=== PATIENT | female | born 1950 | race African-American/Black ===

== ENCOUNTER 2020-06-13 19:56 | Inpatient (IN) | payer OTHER, MEDICAID ==
[~2020-06-13] VITALS: Ht 170.2 cm; Wt 74.4 kg
[2020-06-13] MEDS ORDERED: CEFTRIAXONE 1 G PREMIX 50 ML IV ONE (20:15)
[2020-06-13] MEDS ORDERED: DEXAMETHASONE 10 MG/ML VIAL IV ONE (20:15)
[2020-06-13] MEDS ORDERED: AZITHROMYCIN 500 MG in DEXT 5% WATER 250 ML IV ONE (20:15)
[2020-06-13] MEDS ORDERED: ACETAMINOPHEN 325MG TABLET PO ONE (21:00)
[2020-06-13] MEDS ORDERED: SODIUM CHLORIDE 0.9% 500 ML IV ONE (21:00)
[2020-06-13 21:18] LABS: BASOPHILS % 0.7 % (0.0-2.0); EOSINOPHILS % 0.7 % (0.0-5.0); HEMATOCRIT. 46.3 % (36.0-48.0); HEMOGLOBIN. 15.2 g/dL (12.0-16.0); LYMPHOCYTES % 18.8 % (20.0-50.0); MEAN CORPUSCULAR VOLUME 91.5 fL (81.0-99.0); MEAN PLATELET VOLUME 9.2 fl (7.4-10.4); MONOCYTES % 7.6 % (2.0-8.0); NEUTROPHILS % 72.2 % (40.0-76.0); PLATELET 241 x1000/uL (130-400); RED BLOOD CELL COUNT 5.06 mill/uL (4.2-5.4); RED CELL DISTRIBUTION WIDTH 13.6 % (11.6-14.6)
[2020-06-13 21:25] LABS: CHLORIDE 103 mEq/L (98-107)
[2020-06-13 21:31] LABS: D-DIMER 1.34 mg/L FEU (<0.50); PROTHROMBIN TIME 10.8 sec (9.6-11.0)
[2020-06-13 21:34] LABS: CREATINE KINASE 145 IU/L (26-192)
[2020-06-13 21:52] LABS: BG BASE EXCESS -2.3 mmol/L (-2.0-2.0); BG CARBOXYHEMOGLOBIN 0.5 % (0.5-1.5); BG DEOXYHEMOGLOBIN 3.5 % (0.0-5.0); BG FRACTION INSPIRED OXYGEN 50; BG HCO3 ACT 22.6 mmol/L (22.0-26.0); BG METHEMOGLOBIN 0.3 % (0.0-1.5); BG OXYGEN SATURATION 96.5 % (92.0-98.5); BG OXYHEMOGLOBIN 95.7 % (94.0-97.0); BG PCO2 39.1 mmHg (35.0-45.0); BG PH 7.379 (7.350-7.450); BG SAMPLE SITE RIGHT RADIAL; BG TOTAL HEMOGLOBIN 14.6 g/dL (12.0-18.0); BG VENT MODE NASAL CANNULA
[2020-06-14 00:43] LABS: CLARITY URINE CLEAR (CLEAR); COLOR URINE YELLOW (YELLOW); KETONES URINE TRACE (NEGATIVE); LEUKOCYTE ESTERASE URINE NEGATIVE (NEGATIVE); NITRITE URINE NEGATIVE (NEGATIVE); OCCULT BLOOD URINE NEGATIVE (NEGATIVE); PH URINE 5.5 (4.5-8.0); PROTEIN URINE 1+ (NEGATIVE); SPECIFIC GRAVITY URINE 1.033 (1.005-1.030)
[2020-06-14] MEDS ORDERED: ONDANSETRON HCL 4MG/2ML INJ IV PRN (08:00)
[2020-06-14] MEDS ORDERED: BENZONATATE 100MG CAPSULE PO PRN (08:00)
[2020-06-14] MEDS ORDERED: CEFTRIAXONE 1 G PREMIX 50 ML IV SCH (08:00)
[2020-06-14] MEDS: AZITHROMYCIN 250 MG TABLET PO SCH (12:58)
[2020-06-14] MEDS: DEXAMETHASONE 4MG TABLET PO SCH (12:58)
[2020-06-14] MEDS: ENOXAPARIN 40MG/0.4ML SYR SUBCUT SCH (12:59)
[2020-06-14] MEDS ORDERED: GUAIFENESIN-DM 200MG-20MG/10ML UDC PO PRN (20:45)
[2020-06-14] MEDS ORDERED: ALBUTEROL 6.7GM HFA INHALER ORI PRN (20:45)
[2020-06-15] MEDS: CEFTRIAXONE 1,000 MG in DEXTROSE 5% WATER 50 ML IV SCH (00:30)
[2020-06-15] MEDS ORDERED: CEFTRIAXONE SODIUM 1 G/VIAL ONE (00:34)
[2020-06-15] MEDS: DEXAMETHASONE 4MG TABLET PO SCH (09:00)
[2020-06-15] MEDS: AZITHROMYCIN 250 MG TABLET PO SCH (09:00)
[2020-06-15] MEDS: ENOXAPARIN 40MG/0.4ML SYR SUBCUT SCH (09:00)
[2020-06-15 09:58] LABS: *AMPHETAMINES SCREEN URINE NEGATIVE (NEGATIVE)
[2020-06-15 09:59] LABS: *BARBITURATES SCREEN URINE NEGATIVE (NEGATIVE); *BENZODIAZEPINES SCREEN URINE NEGATIVE (NEGATIVE); *COCAINE SCREEN URINE NEGATIVE (NEGATIVE); CANNABINOID URINE SCREEN NEGATIVE (NEGATIVE); METHADONE URINE SCREEN NEGATIVE (NEGATIVE); OPIATES URINE SCREEN NEGATIVE (NEGATIVE); PHENCYCLIDINE URINE SCREEN NEGATIVE (NEGATIVE)
[2020-06-15] MEDS ORDERED: DEXTROSE 50% WATER 50ML SYRINGE IV PRN (11:15)
[2020-06-15] MEDS: BLOOD SUGAR DIAGNOSTIC STRIP TEST SCH ×3 (11:54→21:00)
[2020-06-15] MEDS: INSULIN LISPRO 100 UNITS/ML SUBCUT SCH ×3 (12:00→23:38)
[2020-06-15 14:00] VITALS: BP 158/66
[2020-06-15] MEDS ORDERED: INSULIN GLARGINE UD 100 UNITS/ML SYR SUBCUT NR (16:00)
[2020-06-15 20:00] VITALS: BP 160/76
[2020-06-15] MEDS: INSULIN GLARGINE UD 100 UNITS/ML SYR SUBCUT SCH (23:38)
[2020-06-16] VITALS: BP 145/55
[2020-06-16] MEDS: CEFTRIAXONE 1,000 MG in DEXTROSE 5% WATER 50 ML IV SCH (03:04)
[2020-06-16 04:00] VITALS: BP 143/61
[2020-06-16 08:00] VITALS: BP 137/63
[2020-06-16] MEDS: BLOOD SUGAR DIAGNOSTIC STRIP TEST SCH ×4 (08:20→21:00)
[2020-06-16] MEDS: ASPIRIN 81MG TABLET PO SCH (09:23)
[2020-06-16] MEDS: AZITHROMYCIN 250 MG TABLET PO SCH (09:23)
[2020-06-16] MEDS: DEXAMETHASONE 4MG TABLET PO SCH (09:23)
[2020-06-16] MEDS: ENOXAPARIN 40MG/0.4ML SYR SUBCUT SCH (09:23)
[2020-06-16] MEDS: INSULIN LISPRO 100 UNITS/ML SUBCUT SCH ×3 (09:25→17:43)
[2020-06-16] MEDS: INSULIN GLARGINE UD 100 UNITS/ML SYR SUBCUT SCH (09:26)
[2020-06-16 12:00] VITALS: BP 148/55
[2020-06-16 16:00] VITALS: BP 150/65
[2020-06-16 18:17] LABS: BG BASE EXCESS 2.8 mmol/L (-2.0-2.0); BG CARBOXYHEMOGLOBIN 0.4 % (0.5-1.5); BG DEOXYHEMOGLOBIN 12.9 % (0.0-5.0); BG FRACTION INSPIRED OXYGEN 21; BG HCO3 ACT 26.9 mmol/L (22.0-26.0); BG METHEMOGLOBIN 0.1 % (0.0-1.5); BG OXYHEMOGLOBIN 86.6 % (94.0-97.0); BG PCO2 39.5 mmHg (35.0-45.0); BG PH 7.451 (7.350-7.450); BG PO2 47.8 mmHg (75.0-100.0); BG SAMPLE SITE LEFT RADIAL; BG TOTAL HEMOGLOBIN 15.2 g/dL (12.0-18.0); BG VENT MODE ROOM AIR
[2020-06-16] MEDS: ACETAMINOPHEN 325MG TABLET PO PRN (21:12)
[2020-06-17] MEDS: CEFTRIAXONE 1,000 MG in DEXTROSE 5% WATER 50 ML IV SCH (00:19)
[2020-06-17] MEDS: INSULIN GLARGINE UD 100 UNITS/ML SYR SUBCUT SCH ×2 (00:19→09:13)
[2020-06-17] MEDS: INSULIN LISPRO 100 UNITS/ML SUBCUT SCH ×5 (00:20→22:11)
[2020-06-17 00:24] VITALS: BP 168/72
[2020-06-17 04:29] VITALS: BP 153/78
[2020-06-17] MEDS: BLOOD SUGAR DIAGNOSTIC STRIP TEST SCH ×4 (06:41→21:27)
[2020-06-17 08:00] VITALS: BP 164/63
[2020-06-17] MEDS: DEXAMETHASONE 4MG TABLET PO SCH (09:12)
[2020-06-17] MEDS: ENOXAPARIN 40MG/0.4ML SYR SUBCUT SCH (09:12)
[2020-06-17] MEDS: ASPIRIN 81MG TABLET PO SCH (09:12)
[2020-06-17] MEDS: AZITHROMYCIN 250 MG TABLET PO SCH (09:12)
[2020-06-17 12:00] VITALS: BP 153/70
[2020-06-17] MEDS: ACETAMINOPHEN 325MG TABLET PO PRN (13:11)
[2020-06-17] MEDS: BENZONATATE 100MG CAPSULE PO SCH ×2 (13:24→21:26)
[2020-06-17 16:00] VITALS: BP 147/64
[2020-06-17 20:00] VITALS: BP 169/94
[2020-06-17] MEDS: CLONIDINE 0.1MG TABLET PO PRN (21:27)
[2020-06-18] VITALS: BP 163/70
[2020-06-18] MEDS: INSULIN GLARGINE UD 100 UNITS/ML SYR SUBCUT SCH ×3 (00:30→22:32)
[2020-06-18] MEDS: CEFTRIAXONE 1,000 MG in DEXTROSE 5% WATER 50 ML IV SCH (00:31)
[2020-06-18 04:00] VITALS: BP 155/64
[2020-06-18] MEDS: BENZONATATE 100MG CAPSULE PO SCH ×3 (05:17→22:32)
[2020-06-18] MEDS: ACETAMINOPHEN 325MG TABLET PO PRN (06:55)
[2020-06-18 08:00] VITALS: BP 154/69
[2020-06-18] MEDS: BLOOD SUGAR DIAGNOSTIC STRIP TEST SCH ×4 (08:00→21:00)
[2020-06-18] MEDS: ASPIRIN 81MG TABLET PO SCH (10:03)
[2020-06-18] MEDS: DEXAMETHASONE 4MG TABLET PO SCH (10:03)
[2020-06-18] MEDS: ENOXAPARIN 40MG/0.4ML SYR SUBCUT SCH (10:04)
[2020-06-18] MEDS: INSULIN LISPRO 100 UNITS/ML SUBCUT SCH ×4 (10:05→22:32)
[2020-06-18 12:00] VITALS: BP 166/73
[2020-06-18] MEDS: CLONIDINE 0.1MG TABLET PO PRN (12:37)
[2020-06-18] MEDS: AMLODIPINE 10MG TABLET PO SCH (14:02)
[2020-06-18 16:00] VITALS: BP 158/65
[2020-06-18] MEDS ORDERED: THROAT LOZENGES-BENZOCAINE/MENTH/CETYLPYRD CL LOZENGES MM PRN (16:45)
[2020-06-18 17:10] LABS: HEMATOCRIT. 47.8 % (36.0-48.0); HEMOGLOBIN. 15.7 g/dL (12.0-16.0); MEAN CORPUSCULAR HEMOGLOBIN 30.2 pg (28.0-32.0); MEAN CORPUSCULAR VOLUME 91.9 fL (81.0-99.0); MEAN PLATELET VOLUME 9.5 fl (7.4-10.4); PLATELET 307 x1000/uL (130-400); RED BLOOD CELL COUNT 5.19 mill/uL (4.2-5.4); RED CELL DISTRIBUTION WIDTH 13.7 % (11.6-14.6)
[2020-06-18 17:21] LABS: CHLORIDE 105 mEq/L (98-107)
[2020-06-18 17:42] LABS: PLATELET ESTIMATE NORMAL
[2020-06-18 20:00] VITALS: BP 144/67
[2020-06-19] VITALS: BP 155/64
[2020-06-19 04:00] VITALS: BP 140/72
[2020-06-19] MEDS: BENZONATATE 100MG CAPSULE PO SCH ×3 (05:39→21:45)
[2020-06-19] MEDS: BLOOD SUGAR DIAGNOSTIC STRIP TEST SCH ×4 (06:33→21:44)
[2020-06-19 08:00] VITALS: BP 139/60
[2020-06-19] MEDS: AMLODIPINE 10MG TABLET PO SCH (09:57)
[2020-06-19] MEDS: ENOXAPARIN 40MG/0.4ML SYR SUBCUT SCH (09:58)
[2020-06-19] MEDS: DEXAMETHASONE 4MG TABLET PO SCH (09:58)
[2020-06-19] MEDS: INSULIN GLARGINE UD 100 UNITS/ML SYR SUBCUT SCH ×2 (09:59→23:29)
[2020-06-19] MEDS: INSULIN LISPRO 100 UNITS/ML SUBCUT SCH ×4 (09:59→21:45)
[2020-06-19] MEDS: ASPIRIN 81MG TABLET PO SCH (10:04)
[2020-06-19 12:00] VITALS: BP 159/61
[2020-06-19 16:00] VITALS: BP 135/68
[2020-06-19 20:00] VITALS: BP 151/66
[2020-06-20] VITALS: BP 152/68
[2020-06-20 04:00] VITALS: BP 149/67
[2020-06-20] MEDS: BLOOD SUGAR DIAGNOSTIC STRIP TEST SCH ×4 (06:04→21:56)
[2020-06-20] MEDS: BENZONATATE 100MG CAPSULE PO SCH ×3 (06:04→22:06)
[2020-06-20] MEDS: INSULIN LISPRO 100 UNITS/ML SUBCUT SCH ×4 (07:29→22:07)
[2020-06-20 08:00] VITALS: BP 157/66
[2020-06-20] MEDS: ASPIRIN 81MG TABLET PO SCH (09:27)
[2020-06-20] MEDS: DEXAMETHASONE 4MG TABLET PO SCH (09:27)
[2020-06-20] MEDS: AMLODIPINE 10MG TABLET PO SCH (09:27)
[2020-06-20] MEDS: ENOXAPARIN 40MG/0.4ML SYR SUBCUT SCH (09:27)
[2020-06-20] MEDS: INSULIN GLARGINE UD 100 UNITS/ML SYR SUBCUT SCH ×2 (09:29→22:08)
[2020-06-20 11:26] LABS: BG BASE EXCESS 8.1 mmol/L (-2.0-2.0); BG CARBOXYHEMOGLOBIN 0.5 % (0.5-1.5); BG DEOXYHEMOGLOBIN 17.1 % (0.0-5.0); BG HCO3 ACT 32.1 mmol/L (22.0-26.0); BG METHEMOGLOBIN 0.2 % (0.0-1.5); BG OXYGEN SATURATION 82.8 % (92.0-98.5); BG OXYHEMOGLOBIN 82.2 % (94.0-97.0); BG PCO2 41.7 mmHg (35.0-45.0); BG PH 7.504 (7.350-7.450); BG PO2 43.2 mmHg (75.0-100.0); BG TOTAL HEMOGLOBIN 15.6 g/dL (12.0-18.0); BG VENT MODE ROOM AIR
[2020-06-20 12:00] VITALS: BP 105/63
[2020-06-20 12:06] LABS: BASOPHILS % 0.6 % (0.0-2.0); EOSINOPHILS % 0.1 % (0.0-5.0); HEMATOCRIT. 48.1 % (36.0-48.0); HEMOGLOBIN. 15.7 g/dL (12.0-16.0); LYMPHOCYTES % 7.8 % (20.0-50.0); MEAN CORPUSCULAR HEMOGLOBIN 30.2 pg (28.0-32.0); MEAN CORPUSCULAR VOLUME 92.6 fL (81.0-99.0); MEAN PLATELET VOLUME 9.6 fl (7.4-10.4); NEUTROPHILS % 87.5 % (40.0-76.0); PLATELET 316 x1000/uL (130-400); RED BLOOD CELL COUNT 5.19 mill/uL (4.2-5.4); RED CELL DISTRIBUTION WIDTH 13.5 % (11.6-14.6)
[2020-06-20 12:23] LABS: CHLORIDE 104 mEq/L (98-107)
[2020-06-20 16:00] VITALS: BP 139/58
[2020-06-20] MEDS ORDERED: HYDROCODONE/ACETAMINOPHEN 5/325MG TABLET PO PRN (16:15)
[2020-06-20] MEDS: ALBUTEROL 6.7GM HFA INHALER ORI SCH (19:03)
[2020-06-20 20:00] VITALS: BP 140/65
[2020-06-20] MEDS: FAMOTIDINE 20MG TABLET PO SCH (22:06)
[2020-06-21] VITALS: BP 152/70
[2020-06-21 04:00] VITALS: BP 152/69
[2020-06-21] MEDS: BENZONATATE 100MG CAPSULE PO SCH ×3 (06:32→22:31)
[2020-06-21] MEDS: INSULIN LISPRO 100 UNITS/ML SUBCUT SCH ×4 (07:58→22:32)
[2020-06-21] MEDS: BLOOD SUGAR DIAGNOSTIC STRIP TEST SCH ×4 (07:58→21:00)
[2020-06-21 08:00] VITALS: BP 137/58
[2020-06-21] MEDS: ASPIRIN 81MG TABLET PO SCH (09:30)
[2020-06-21] MEDS: DEXAMETHASONE 4MG TABLET PO SCH (09:31)
[2020-06-21] MEDS: AMLODIPINE 10MG TABLET PO SCH (09:31)
[2020-06-21] MEDS: ENOXAPARIN 40MG/0.4ML SYR SUBCUT SCH (09:32)
[2020-06-21 12:00] VITALS: BP 121/62
[2020-06-21 12:28] LABS: BG BASE EXCESS 6.4 mmol/L (-2.0-2.0); BG CARBOXYHEMOGLOBIN 0.8 % (0.5-1.5); BG DEOXYHEMOGLOBIN 6.2 % (0.0-5.0); BG FRACTION INSPIRED OXYGEN 100; BG HCO3 ACT 30.9 mmol/L (22.0-26.0); BG METHEMOGLOBIN 0.1 % (0.0-1.5); BG OXYGEN SATURATION 93.7 % (92.0-98.5); BG OXYHEMOGLOBIN 92.9 % (94.0-97.0); BG PCO2 43.8 mmHg (35.0-45.0); BG PH 7.467 (7.350-7.450); BG PO2 65.8 mmHg (75.0-100.0); BG SAMPLE SITE RIGHT RADIAL; BG TOTAL HEMOGLOBIN 15.2 g/dL (12.0-18.0); BG TOTAL RESPIRATORY RATE 34 b/min; BG VENT MODE MASK - BIPAP
[2020-06-21] MEDS: ALBUTEROL 6.7GM HFA INHALER ORI SCH ×2 (12:59→18:18)
[2020-06-21 16:00] VITALS: BP 124/62
[2020-06-21 20:00] VITALS: BP 133/61
[2020-06-21] MEDS: FAMOTIDINE 20MG TABLET PO SCH (22:31)
[2020-06-21] MEDS: INSULIN GLARGINE UD 100 UNITS/ML SYR SUBCUT SCH (22:33)
[2020-06-22] VITALS: BP 135/64
[2020-06-22 04:00] VITALS: BP 144/63
[2020-06-22] MEDS: ALBUTEROL 6.7GM HFA INHALER ORI SCH ×4 (06:11→18:20)
[2020-06-22] MEDS: BENZONATATE 100MG CAPSULE PO SCH ×3 (06:11→22:14)
[2020-06-22 06:49] LABS: BASOPHILS % 0.3 % (0.0-2.0); CHLORIDE 105 mEq/L (98-107); EOSINOPHILS % 0.5 % (0.0-5.0); HEMATOCRIT. 41.9 % (36.0-48.0); MEAN CORPUSCULAR HEMOGLOBIN 30.6 pg (28.0-32.0); MEAN CORPUSCULAR VOLUME 91.7 fL (81.0-99.0); MEAN PLATELET VOLUME 10.2 fl (7.4-10.4); MONOCYTES % 5.2 % (2.0-8.0); PLATELET 274 x1000/uL (130-400); RED BLOOD CELL COUNT 4.57 mill/uL (4.2-5.4); RED CELL DISTRIBUTION WIDTH 13.1 % (11.6-14.6)
[2020-06-22] MEDS: BLOOD SUGAR DIAGNOSTIC STRIP TEST SCH ×4 (06:55→21:16)
[2020-06-22] MEDS: INSULIN LISPRO 100 UNITS/ML SUBCUT SCH ×4 (07:56→22:13)
[2020-06-22 08:00] VITALS: BP 133/71
[2020-06-22] MEDS: DEXAMETHASONE 4MG TABLET PO SCH (08:40)
[2020-06-22] MEDS: ASPIRIN 81MG TABLET PO SCH (08:40)
[2020-06-22] MEDS: ENOXAPARIN 40MG/0.4ML SYR SUBCUT SCH (08:40)
[2020-06-22] MEDS: AMLODIPINE 10MG TABLET PO SCH (08:40)
[2020-06-22] MEDS: INSULIN GLARGINE UD 100 UNITS/ML SYR SUBCUT SCH ×2 (11:03→22:14)
[2020-06-22 12:00] VITALS: BP 125/70
[2020-06-22 13:46] LABS: BG BASE EXCESS 4.7 mmol/L (-2.0-2.0); BG CARBOXYHEMOGLOBIN 1.4 % (0.5-1.5); BG DEOXYHEMOGLOBIN 6.8 % (0.0-5.0); BG FRACTION INSPIRED OXYGEN 36; BG HCO3 ACT 29.1 mmol/L (22.0-26.0); BG METHEMOGLOBIN 0.1 % (0.0-1.5); BG OXYGEN SATURATION 93.1 % (92.0-98.5); BG OXYHEMOGLOBIN 91.7 % (94.0-97.0); BG PCO2 41.8 mmHg (35.0-45.0); BG PO2 62.2 mmHg (75.0-100.0); BG SAMPLE SITE RIGHT RADIAL; BG TOTAL HEMOGLOBIN 15.3 g/dL (12.0-18.0); BG VENT MODE NASAL CANNULA
[2020-06-22 16:00] VITALS: BP 127/68
[2020-06-22 20:00] VITALS: BP 117/52
[2020-06-22] MEDS: FAMOTIDINE 20MG TABLET PO SCH (22:14)
[2020-06-23 04:00] VITALS: BP_SYST 128; BP_SYST 97; BP_DIAS 48; BP_DIAS 62
[2020-06-23] MEDS: BENZONATATE 100MG CAPSULE PO SCH ×3 (06:10→21:31)
[2020-06-23] MEDS: ALBUTEROL 6.7GM HFA INHALER ORI SCH ×3 (06:10→18:04)
[2020-06-23] MEDS: BLOOD SUGAR DIAGNOSTIC STRIP TEST SCH ×4 (07:28→21:33)
[2020-06-23] MEDS: INSULIN LISPRO 100 UNITS/ML SUBCUT SCH ×4 (07:47→21:33)
[2020-06-23 08:00] VITALS: BP 132/54
[2020-06-23] MEDS: INSULIN GLARGINE UD 100 UNITS/ML SYR SUBCUT SCH ×2 (10:00→21:32)
[2020-06-23] MEDS: DEXAMETHASONE 4MG TABLET PO SCH (10:57)
[2020-06-23] MEDS: ASPIRIN 81MG TABLET PO SCH (10:57)
[2020-06-23] MEDS: AMLODIPINE 10MG TABLET PO SCH (10:57)
[2020-06-23] MEDS: ENOXAPARIN 40MG/0.4ML SYR SUBCUT SCH (10:58)
[2020-06-23 12:00] VITALS: BP 124/58
[2020-06-23 16:00] VITALS: BP 117/78
[2020-06-23 20:00] VITALS: BP 120/50
[2020-06-23] MEDS: FAMOTIDINE 20MG TABLET PO SCH (21:31)
[2020-06-24] VITALS: BP 125/57
[2020-06-24 04:00] VITALS: BP 130/58
[2020-06-24] MEDS: BENZONATATE 100MG CAPSULE PO SCH ×3 (04:52→20:29)
[2020-06-24] MEDS: ALBUTEROL 6.7GM HFA INHALER ORI SCH ×4 (06:00→18:00)
[2020-06-24] MEDS: BLOOD SUGAR DIAGNOSTIC STRIP TEST SCH ×4 (07:40→20:30)
[2020-06-24 08:00] VITALS: BP 154/97
[2020-06-24] MEDS: INSULIN LISPRO 100 UNITS/ML SUBCUT SCH ×4 (08:10→20:29)
[2020-06-24] MEDS: INSULIN GLARGINE UD 100 UNITS/ML SYR SUBCUT SCH ×2 (09:33→22:49)
[2020-06-24] MEDS: ASPIRIN 81MG TABLET PO SCH (09:33)
[2020-06-24] MEDS: AMLODIPINE 10MG TABLET PO SCH (09:33)
[2020-06-24] MEDS: ENOXAPARIN 40MG/0.4ML SYR SUBCUT SCH (09:34)
[2020-06-24] MEDS: DEXAMETHASONE 4MG TABLET PO SCH (09:47)
[2020-06-24 12:00] VITALS: BP 126/66
[2020-06-24 12:08] LABS: HEMATOCRIT 44.4 % (36.0-48.0); HEMOGLOBIN 14.4 g/dL (12.0-16.0); MEAN CORPUSCULAR HEMOGLOBIN 30.1 pg (28.0-32.0); MEAN CORPUSCULAR VOLUME 92.7 fL (81.0-99.0); PLATELET 281 x1000/uL (130-400); RED BLOOD CELL COUNT 4.79 mill/uL (4.2-5.4); RED CELL DISTRIBUTION WIDTH 13.7 % (11.6-14.6)
[2020-06-24 12:25] LABS: CHLORIDE 103 mEq/L (98-107)
[2020-06-24 16:00] VITALS: BP 115/47
[2020-06-24 20:00] VITALS: BP 113/69
[2020-06-24] MEDS: FAMOTIDINE 20MG TABLET PO SCH (20:29)
[2020-06-25] VITALS: BP 121/70
[2020-06-25 04:00] VITALS: BP 114/54
[2020-06-25] MEDS: ALBUTEROL 6.7GM HFA INHALER ORI SCH ×5 (05:01→20:33)
[2020-06-25] MEDS: BENZONATATE 100MG CAPSULE PO SCH ×3 (05:11→20:33)
[2020-06-25 07:01] LABS: T4 FREE 0.65 ng/dL (0.76-1.46)
[2020-06-25] MEDS: INSULIN LISPRO 100 UNITS/ML SUBCUT SCH ×4 (07:52→21:00)
[2020-06-25] MEDS: BLOOD SUGAR DIAGNOSTIC STRIP TEST SCH ×4 (07:52→21:00)
[2020-06-25 08:00] VITALS: BP_SYST 112; BP_SYST 113; BP_DIAS 61; BP_DIAS 64
[2020-06-25] MEDS: AMLODIPINE 10MG TABLET PO SCH (10:21)
[2020-06-25] MEDS: ASPIRIN 81MG TABLET PO SCH (10:21)
[2020-06-25] MEDS: ENOXAPARIN 40MG/0.4ML SYR SUBCUT SCH (10:22)
[2020-06-25] MEDS: INSULIN GLARGINE UD 100 UNITS/ML SYR SUBCUT SCH ×2 (10:24→23:00)
[2020-06-25 12:00] VITALS: BP 106/49
[2020-06-25 17:30] LABS: BG BASE EXCESS 2.9 mmol/L (-2.0-2.0); BG CARBOXYHEMOGLOBIN 0.4 % (0.5-1.5); BG DEOXYHEMOGLOBIN 8.7 % (0.0-5.0); BG FRACTION INSPIRED OXYGEN 21; BG HCO3 ACT 26.3 mmol/L (22.0-26.0); BG METHEMOGLOBIN 0.2 % (0.0-1.5); BG OXYGEN SATURATION 91.2 % (92.0-98.5); BG OXYHEMOGLOBIN 90.7 % (94.0-97.0); BG PCO2 36.4 mmHg (35.0-45.0); BG PH 7.476 (7.350-7.450); BG PO2 58.8 mmHg (75.0-100.0); BG SAMPLE SITE RIGHT BRACHIAL; BG VENT MODE ROOM AIR
[2020-06-25 20:00] VITALS: BP 110/96
[2020-06-25] MEDS: FAMOTIDINE 20MG TABLET PO SCH (20:33)
[2020-06-26] VITALS: BP 120/84
[2020-06-26 04:00] VITALS: BP 122/80
[2020-06-26] MEDS: ALBUTEROL 6.7GM HFA INHALER ORI SCH ×3 (05:31→17:52)
[2020-06-26] MEDS: BENZONATATE 100MG CAPSULE PO SCH ×3 (05:31→21:38)
[2020-06-26 08:00] VITALS: BP 101/47
[2020-06-26] MEDS: INSULIN LISPRO 100 UNITS/ML SUBCUT SCH ×4 (08:10→21:00)
[2020-06-26] MEDS: BLOOD SUGAR DIAGNOSTIC STRIP TEST SCH ×4 (08:15→21:00)
[2020-06-26] MEDS: AMLODIPINE 10MG TABLET PO SCH (09:00)
[2020-06-26] MEDS: ASPIRIN 81MG TABLET PO SCH (09:56)
[2020-06-26] MEDS: ENOXAPARIN 40MG/0.4ML SYR SUBCUT SCH (09:56)
[2020-06-26] MEDS: INSULIN GLARGINE UD 100 UNITS/ML SYR SUBCUT SCH ×2 (11:49→22:00)
[2020-06-26 12:00] VITALS: BP 114/52
[2020-06-26 16:00] VITALS: BP 118/41
[2020-06-26 18:30] LABS: BG BASE EXCESS 3.4 mmol/L (-2.0-2.0); BG CARBOXYHEMOGLOBIN 0.8 % (0.5-1.5); BG DEOXYHEMOGLOBIN 10.1 % (0.0-5.0); BG FRACTION INSPIRED OXYGEN 21; BG HCO3 ACT 27.2 mmol/L (22.0-26.0); BG METHEMOGLOBIN 0.4 % (0.0-1.5); BG OXYGEN SATURATION 89.8 % (92.0-98.5); BG OXYHEMOGLOBIN 88.7 % (94.0-97.0); BG PCO2 38.7 mmHg (35.0-45.0); BG PH 7.465 (7.350-7.450); BG PO2 54.7 mmHg (75.0-100.0); BG SAMPLE SITE LEFT RADIAL; BG TOTAL HEMOGLOBIN 15.7 g/dL (12.0-18.0); BG VENT MODE ROOM AIR
[2020-06-26 20:00] VITALS: BP 128/65
[2020-06-26] MEDS: FAMOTIDINE 20MG TABLET PO SCH (21:38)
[2020-06-27] VITALS: BP 113/54
[2020-06-27 04:00] VITALS: BP 118/47
[2020-06-27] MEDS: ALBUTEROL 6.7GM HFA INHALER ORI SCH ×5 (05:36→23:10)
[2020-06-27] MEDS: BENZONATATE 100MG CAPSULE PO SCH ×3 (05:37→20:33)
[2020-06-27] MEDS: BLOOD SUGAR DIAGNOSTIC STRIP TEST SCH ×4 (07:40→20:33)
[2020-06-27 08:00] VITALS: BP 129/67
[2020-06-27] MEDS: INSULIN LISPRO 100 UNITS/ML SUBCUT SCH ×4 (08:10→20:39)
[2020-06-27] MEDS: ASPIRIN 81MG TABLET PO SCH (09:03)
[2020-06-27] MEDS: AMLODIPINE 10MG TABLET PO SCH (09:04)
[2020-06-27] MEDS: ENOXAPARIN 40MG/0.4ML SYR SUBCUT SCH (09:04)
[2020-06-27] MEDS: INSULIN GLARGINE UD 100 UNITS/ML SYR SUBCUT SCH ×2 (09:05→21:12)
[2020-06-27 12:00] VITALS: BP 114/53
[2020-06-27 16:00] VITALS: BP 116/59
[2020-06-27 20:00] VITALS: BP 116/56
[2020-06-27] MEDS: FAMOTIDINE 20MG TABLET PO SCH (20:33)
[2020-06-28] VITALS: BP 107/54
[2020-06-28 04:00] VITALS: BP 108/49
[2020-06-28] MEDS: BENZONATATE 100MG CAPSULE PO SCH ×3 (05:57→21:04)
[2020-06-28] MEDS: BLOOD SUGAR DIAGNOSTIC STRIP TEST SCH ×3 (05:57→20:13)
[2020-06-28] MEDS: ALBUTEROL 6.7GM HFA INHALER ORI SCH ×2 (05:58→12:00)
[2020-06-28 08:00] VITALS: BP 116/52
[2020-06-28] MEDS: INSULIN LISPRO 100 UNITS/ML SUBCUT SCH ×3 (08:10→20:13)
[2020-06-28] MEDS: AMLODIPINE 10MG TABLET PO SCH (10:36)
[2020-06-28] MEDS: ENOXAPARIN 40MG/0.4ML SYR SUBCUT SCH (10:36)
[2020-06-28] MEDS: ASPIRIN 81MG TABLET PO SCH (10:36)
[2020-06-28] MEDS: INSULIN GLARGINE UD 100 UNITS/ML SYR SUBCUT SCH ×2 (10:41→22:00)
[2020-06-28 12:00] VITALS: BP 121/63
[2020-06-28 16:00] VITALS: BP 118/59
[2020-06-28 20:00] VITALS: BP 121/64
[2020-06-28] MEDS: FAMOTIDINE 20MG TABLET PO SCH (21:04)
[2020-06-29] MEDS: BLOOD SUGAR DIAGNOSTIC STRIP TEST SCH ×2 (06:18→12:20)
[2020-06-29] MEDS: BENZONATATE 100MG CAPSULE PO SCH ×2 (06:18→14:48)
[2020-06-29] MEDS: INSULIN LISPRO 100 UNITS/ML SUBCUT SCH ×2 (07:15→12:50)
[2020-06-29 08:00] VITALS: BP 142/89
[2020-06-29] MEDS: AMLODIPINE 10MG TABLET PO SCH (09:16)
[2020-06-29] MEDS: ASPIRIN 81MG TABLET PO SCH (09:17)
[2020-06-29] MEDS: ENOXAPARIN 40MG/0.4ML SYR SUBCUT SCH (09:17)
[2020-06-29] MEDS ORDERED: INSULIN GLARGINE UD 100 UNITS/ML SYR SUBCUT SCH (12:30)
[2020-06-29 17:39] VITALS: BP 142/88
== END 2020-06-29 20:35 | disposition home or self-care (01) | DRG 871 ==
LOC: ER 19:56 → EDBEDREQDT 06-14 00:22 → EDBEDREQTM 06-14 00:22 → EDBEDREQ 06-14 00:22 → MICUSO 06-14 22:39 → 7WST 06-15 13:24 → 6WST 06-28 20:40
PROVIDERS: ADMIT Internal Medicine; ATTEND Internal Medicine
DX: A41.89 Other specified sepsis (principal); U07.1 COVID-19; J96.01 Acute respiratory failure with hypoxia; E43 Unspecified severe protein-calorie malnutrition; J12.82 Pneumonia due to coronavirus disease 2019; J15.9 Unspecified bacterial pneumonia; D68.69 Other thrombophilia; E87.1 Hypo-osmolality and hyponatremia; J45.909 Unspecified asthma, uncomplicated; K52.9 Noninfective gastroenteritis and colitis, unspecified; R65.20 Severe sepsis without septic shock; E78.5 Hyperlipidemia, unspecified; F17.210 Nicotine dependence, cigarettes, uncomplicated; I10 Essential (primary) hypertension; E11.65 Type 2 diabetes mellitus with hyperglycemia; B97.89 Other viral agents as the cause of diseases classified elsewhere; E78.00 Pure hypercholesterolemia, unspecified; R74.01 Elevation of levels of liver transaminase levels; R00.1 Bradycardia, unspecified; T50.995A Adverse effect of other drugs, medicaments and biological substances, initial encounter; Z68.25 Body mass index [BMI] 25.0-25.9, adult; Y92.89 Other specified places as the place of occurrence of the external cause; Z99.81 Dependence on supplemental oxygen; Z79.899 Other long term (current) drug therapy; T50.905A Adverse effect of unspecified drugs, medicaments and biological substances, initial encounter
CPT/HCPCS: 36415; 36600; 71045; 80048; 80053; 80305; 81003; 82375; 82550; 82728; 82805; 82962; 83036; 83605; 83615; 83880; 84145; 84439; 84443; 84484; 85025; 85027; 85379; 85384; 86140; 87635; 93005; 99291; J0456; J0696; J1100; J1650; J1815; J7040; J7060; J8540